=== PATIENT | male | born 1955 | race Caucasian/White ===

== ENCOUNTER 2018-10-26 20:52 | Emergency (ER) | payer MEDICARE ==
[~2018-10-26] VITALS: Ht 188 cm; Wt 120.2 kg
[2018-10-26] MEDS ORDERED: LIPITOR40 MG PO (21:05)
[2018-10-26] MEDS ORDERED: VENTOLIN HFA18 GM INH (21:05)
[2018-10-26] MEDS ORDERED: SPIRIVA18 MCG INH (21:06)
[2018-10-26] MEDS ORDERED: PROTONIX40 MG PO (21:06)
[2018-10-26] MEDS ORDERED: SEREVENT DISKU1 PUFF INH (21:06)
[2018-10-26] MEDS ORDERED: MELOXICAM15 MG (21:06)
[2018-10-27] MEDS ORDERED: MECLIZINE HCL25 MG PO (00:50)
--- NOTE | 2018-10-27 07:16 | EKG ---
[facility] [address] [place], [place] [address] Signed Normal sinus rhythm Inferior infarct , age undetermined Abnormal ECG No previous ECGs available Confirmed by BEAN TORRES MD ([id number]) on 10/27/2018 7:16:38 AM Electronically Signed By: BEAN TORRES MD 10/27/18 0716 PATIENT NAME: DAGOBERTO OLSON Electrocardiogram DATE OF : 51 PHYSICIAN: BEAN TORRES MD REPORT #: [id number] REPORT IS CONFIDENTIAL AND NOT TO BE RELEASED WITHOUT AUTHORIZATION
== END 2018-10-27 00:56 | disposition home or self-care (01) ==
LOC: ED 20:52
DX: R42 Dizziness and giddiness (principal); I10 Essential (primary) hypertension; J44.9 Chronic obstructive pulmonary disease, unspecified; E78.00 Pure hypercholesterolemia, unspecified; Z87.891 Personal history of nicotine dependence; Z79.899 Other long term (current) drug therapy
CPT/HCPCS: 80053; 83735; 84484; 85025; 93005; 93010; 99284-25